=== PATIENT | female | born 1985 | race Hispanic/Latino ===

== ENCOUNTER 2020-09-09 12:13 | Day surgery (SDC) | payer MEDICAID ==
[2020-09-09] MEDS ORDERED: Ondansetron PF 4 MG/2 ML Vial IVP PRN (13:04)
[2020-09-09] MEDS ORDERED: hydrALAZINE 20 MG/ML VIAL SLOW IVP PRN (13:04)
[2020-09-09 13:06] VITALS: BMI 40.8
[2020-09-09 13:46] LABS: #Eosinphils 0.1 10x3/uL (0.0-0.5); #Monocytes 0.8 10x3/uL (0.0-1.1); #Neutrophils 5.3 10x3/uL (1.5-8.4); %Basophils 0.5 % (0.0-2.0); %Eosinophils 1.7 % (0.0-6.0); %Lymphocytes 23.4 % (18.0-47.0); %Neutrophils 63.7 % (40.0-75.0); Hemoglobin 13.7 g/dL (12.0-15.5); Mean Corpuscular HGB CONC 32.9 g/dL (32.0-36.0); Mean Corpuscular Hemoglobin 29.6 pg (27.0-33.0); Mean Corpuscular Volume 90.1 fl (81.6-98.3); Mean Platelet Volume 10.7 fl (7.4-10.4); Platelet Count 260 10x3/uL (150-450); RBC Distribution Width 13.1 % (11.5-14.5); Red Blood Cell (RBC) Count 4.63 10x6/uL (3.90-5.03); White Blood Cell (WBC) Count 8.4 10x3/uL (3.5-10.5)
[2020-09-09] MEDS: Betamet Acet/Betamet Na Ph 30 MG/5 ML VIAL IM SCH (14:11)
[2020-09-09] MEDS ORDERED: Lactated Ringer's 1,000 ML IV SCH (22:30)
[2020-09-10] MEDS ORDERED: Aspirin 81 mg Enteric Coated Tablet PO SCH (09:00)
[2020-09-10] MEDS: Betamet Acet/Betamet Na Ph 30 MG/5 ML VIAL IM SCH (14:23)
[2020-09-10 14:49] LABS: SARS-CoV-2 PCR by NAA Not Detected (NotDetected)
== END 2020-09-10 16:00 | disposition home or self-care (01) ==
LOC: CSHLD/OP 12:13
PROVIDERS: ATTEND Obstetrics & Gynecology
DX: O36.5930 Maternal care for other known or suspected poor fetal growth, third trimester, not applicable or unspecified (principal); O41.03X0 Oligohydramnios, third trimester, not applicable or unspecified; O99.213 Obesity complicating pregnancy, third trimester; E66.9 Obesity, unspecified; O09.523 Supervision of elderly multigravida, third trimester; O34.219 Maternal care for unspecified type scar from previous cesarean delivery; Z3A.32 32 weeks gestation of pregnancy; Z79.82 Long term (current) use of aspirin; Z20.822 Contact with and (suspected) exposure to COVID-19
CPT/HCPCS: 85025; 86850; 86900; 86901; 87635; J0702; U0003; U0005

== ENCOUNTER 2020-09-14 13:46 | Inpatient (IN) | payer MEDICAID, SELFPAY ==
[2020-09-14 14:21] VITALS: BMI 38.9
[2020-09-14] MEDS ORDERED: hydrALAZINE 20 MG/ML VIAL SLOW IVP PRN (14:50)
[2020-09-14] MEDS ORDERED: Ondansetron PF 4 MG/2 ML Vial IVP PRN (15:46)
[2020-09-14] MEDS ORDERED: Promethazine HCl 25 MG/ML VIAL IM PRN (15:46)
[2020-09-14 17:19] LABS: Hemoglobin 13.6 g/dL (12.0-15.5); Mean Corpuscular HGB CONC 33.2 g/dL (32.0-36.0); Mean Corpuscular Hemoglobin 29.8 pg (27.0-33.0); Mean Corpuscular Volume 89.9 fl (81.6-98.3); Mean Platelet Volume 10.5 fl (7.4-10.4); Platelet Count 220 10x3/uL (150-450); RBC Distribution Width 13.2 % (11.5-14.5); Red Blood Cell (RBC) Count 4.56 10x6/uL (3.90-5.03); White Blood Cell (WBC) Count 11.3 10x3/uL (3.5-10.5)
[2020-09-14 17:52] LABS: Hep B Surf Ag Non-Reactive S/CO (NonReactive); Syphilis Antibody Nonreactive (Nonreactive); Syphilis Antibody Index 0.02 S/CO (<1.00 Non-Reactive)
[2020-09-14 18:21] LABS: HBSAg Index 0.16 S/CO (0-0.99)
[2020-09-15] MEDS ORDERED: Famotidine/PF 20 mg/2ml Vial SLOW IVP PRN (03:42)
[2020-09-15] MEDS ORDERED: Bicitra 30 ML UDCUP PO PRN (03:42)
[2020-09-15] MEDS ORDERED: CEFAZOLIN 2 GM in Premix Bag 1 BAG IVPB SCH (04:00)
[2020-09-15 04:15] LABS: SARS-CoV-2 NAA Rapid Test Not Detected (NotDetected)
[2020-09-15] MEDS ORDERED: Morphine PF 10 MG/10 ML VIAL ONE (06:50)
[2020-09-15] MEDS ORDERED: Oxytocin 10 UNITS/ML VIAL ONE (06:51)
[2020-09-15] MEDS ORDERED: Dexamethasone 4 mg/ml Vial ONE (06:52)
[2020-09-15] MEDS ORDERED: Ondansetron PF 4 MG/2 ML Vial ONE (06:52)
[2020-09-15] MEDS ORDERED: Phenylephrine 10 MG/ML VIAL ONE (07:04)
[2020-09-15] MEDS ORDERED: Glycopyrrolate 0.2 MG/ML 5 ML SYRINGE ONE (07:46)
[2020-09-15] MEDS ORDERED: Midazolam HCl 2 mg/2 ml Vial ONE (08:05)
[2020-09-15] MEDS ORDERED: Fentanyl 100 MCG/2 ML VIAL ONE (08:17)
[2020-09-15 08:38] LABS: RapidComm Collect By CBN; pH (Cord, venous) 7.309 (7.250-7.350)
[2020-09-15 08:39] LABS: RapidComm Collect By CBN
[2020-09-15] MEDS ORDERED: diphenhydrAMINE 50 MG/ML VIAL IVP PRN (09:36)
[2020-09-15] MEDS ORDERED: Naloxone HCl 0.4 mg/ml Vial IVP PRN ×2 (09:36)
[2020-09-15] MEDS ORDERED: HYDROmorphone 2 MG/ML VIAL SLOW IVP PRN (09:36)
[2020-09-15] MEDS ORDERED: Promethazine HCl 25 MG/ML VIAL IM PRN ×2 (09:36→14:14)
[2020-09-15] MEDS ORDERED: Ondansetron PF 4 MG/2 ML Vial IVP PRN ×2 (09:36→14:14)
[2020-09-15] MEDS ORDERED: Meperidine HCl/PF 25 MG/ML VIAL SLOW IVP PRN (09:36)
[2020-09-15] MEDS ORDERED: Promethazine HCl 25 MG SUPP PR PRN (09:36)
[2020-09-15] MEDS ORDERED: Naloxone HCl 0.4 mg/ml Vial IV PRN (09:36)
[2020-09-15] MEDS ORDERED: L&D-Morphine 4 MG/ML VIAL SLOW IVP PRN (09:36)
[2020-09-15] MEDS ORDERED: Ondansetron HCl/PF 4 MG/2 ML Vial IVP PRN (09:36)
[2020-09-15] MEDS ORDERED: Ketorolac Tromethamine 30 MG/ML VIAL ONE (09:39)
[2020-09-15] MEDS ORDERED: Ketorolac Tromethamine 30 MG/ML VIAL IVP SCH (09:45)
[2020-09-15] MEDS ORDERED: Communication Order-Pharmacy FS SCH (09:45)
[2020-09-15] MEDS ORDERED: Hydrocerin (Eucerin) Cream 120 gm Jar TOP PRN (10:05)
[2020-09-15] MEDS ORDERED: NS w/ Oxytocin 30 units 500 ML ONE (10:10)
[2020-09-15 13:48] LABS: ALT (SGPT) 20 U/L (8-55); AST (SGOT) 27 U/L (5-34); Albumin 2.8 g/dL (3.5-5.0); Alkaline Phosphatase 120 U/L (40-110); Anion Gap 11 mmol/L (10-20); BUN (Urea Nitrogen) 10 mg/dL (7.0-18.7); Bilirubin, Total 0.2 mg/dL (0.2-1.2); Calc. Creatinine Clearance 203 mL/min (70-130); Calcium 8.1 mg/dL (7.8-10.44); Carbon Dioxide 22 mmol/L (22-29); Chloride 109 mmol/L (98-107); Globulin 2.8 g/dL (2.4-3.5); Glucose 99 mg/dL (70-105); Potassium 5.2 mmol/L (3.5-5.1); Protein, Total 5.6 g/dL (6.0-8.3); Sodium 137 mmol/L (136-145)
[2020-09-15] MEDS ORDERED: HYDROcodone/Acetaminophen 5/325 mg Tablet PO PRN (14:14)
[2020-09-15] MEDS ORDERED: Simethicone Chewable 80 MG TAB PO PRN (14:14)
[2020-09-15] MEDS ORDERED: Lanolin Ointment 7 GM TUBE TOP PRN (14:14)
[2020-09-15] MEDS ORDERED: Adacel (T-DAP) 0.5 ML SYRINGE IM ONE (14:14)
[2020-09-15] MEDS ORDERED: hydrALAZINE 20 MG/ML VIAL SLOW IVP PRN (14:14)
[2020-09-15] MEDS ORDERED: diphenhydrAMINE 25 MG CAP PO PRN (14:14)
[2020-09-15] MEDS: Ketorolac Tromethamine 30 MG/ML VIAL IVP PRN ×2 (15:46→23:54)
[2020-09-16 06:13] LABS: Hemoglobin 11.8 g/dL (12.0-15.5); Mean Corpuscular HGB CONC 32.4 g/dL (32.0-36.0); Mean Corpuscular Hemoglobin 29.5 pg (27.0-33.0); Mean Platelet Volume 10.9 fl (7.4-10.4); Platelet Count 203 10x3/uL (150-450); RBC Distribution Width 13.6 % (11.5-14.5)
[2020-09-16 06:31] LABS: ALT (SGPT) 15 U/L (8-55); AST (SGOT) 21 U/L (5-34); Albumin 2.8 g/dL (3.5-5.0); Alkaline Phosphatase 104 U/L (40-110); Anion Gap 10 mmol/L (10-20); BUN (Urea Nitrogen) 11 mg/dL (7.0-18.7); Bilirubin, Total 0.3 mg/dL (0.2-1.2); Calc. Creatinine Clearance 193 mL/min (70-130); Calcium 8.7 mg/dL (7.8-10.44); Carbon Dioxide 27 mmol/L (22-29); Chloride 104 mmol/L (98-107); Globulin 2.5 g/dL (2.4-3.5); Glucose 112 mg/dL (70-105); Potassium 5.7 mmol/L (3.5-5.1); Protein, Total 5.3 g/dL (6.0-8.3); Sodium 135 mmol/L (136-145)
[2020-09-16] MEDS: Docusate Calcium (SURFAK) 240 MG CAP PO SCH ×3 (06:52→20:01)
[2020-09-16] MEDS: Ferrous Sulfate 325 MG TAB PO SCH ×2 (06:53→07:20)
[2020-09-16] MEDS ORDERED: Furosemide 20 MG/2 ML VIAL SLOW IVP SCH (07:00)
[2020-09-16] MEDS: Prenatal Vitamin 1 TAB PO SCH (07:39)
[2020-09-16] MEDS ORDERED: Ibuprofen 800 MG TAB PO SCH (14:00)
[2020-09-16 14:18] LABS: Anion Gap 8 mmol/L (10-20); BUN (Urea Nitrogen) 11 mg/dL (7.0-18.7); Calc. Creatinine Clearance 185 mL/min (70-130); Calcium 9.1 mg/dL (7.8-10.44); Carbon Dioxide 30 mmol/L (22-29); Chloride 104 mmol/L (98-107); Glucose 108 mg/dL (70-105); Potassium 5.3 mmol/L (3.5-5.1); Sodium 137 mmol/L (136-145)
[2020-09-16] MEDS: HYDROcodone/Acetaminophen 5/325 mg Tablet PO PRN (20:00)
[2020-09-16] MEDS: Ibuprofen 600 MG TAB PO SCH (20:12)
[2020-09-17] MEDS: Ibuprofen 600 MG TAB PO SCH (05:28)
[2020-09-17] MEDS: Docusate Calcium (SURFAK) 240 MG CAP PO SCH (07:37)
[2020-09-17] MEDS: Prenatal Vitamin 1 TAB PO SCH (07:37)
[2020-09-17] MEDS: HYDROcodone/Acetaminophen 5/325 mg Tablet PO PRN (07:37)
[2020-09-17 07:48] LABS: ALT (SGPT) 15 U/L (8-55); AST (SGOT) 24 U/L (5-34); Albumin 2.8 g/dL (3.5-5.0); Alkaline Phosphatase 87 U/L (40-110); Anion Gap 10 mmol/L (10-20); BUN (Urea Nitrogen) 12 mg/dL (7.0-18.7); Bilirubin, Total 0.2 mg/dL (0.2-1.2); Calc. Creatinine Clearance 177 mL/min (70-130); Calcium 8.6 mg/dL (7.8-10.44); Carbon Dioxide 29 mmol/L (22-29); Chloride 105 mmol/L (98-107); Globulin 2.5 g/dL (2.4-3.5); Glucose 88 mg/dL (70-105); Protein, Total 5.3 g/dL (6.0-8.3); Sodium 139 mmol/L (136-145)
[2020-09-17 08:08] VITALS: BP 126/64; TEMP 98.6
== END 2020-09-17 12:39 | disposition home or self-care (01) | DRG 787 ==
LOC: CSHLD/OP 13:46 → CSHLD 09-15 03:38 → CSHPED 09-15 12:40
PROVIDERS: ADMIT Obstetrics & Gynecology; ATTEND Obstetrics & Gynecology
PROC: 10D00Z1 Extraction of Products of Conception, Low, Open Approach (ICD-10-PCS; principal; 2020-09-15)
DX: O36.5930 Maternal care for other known or suspected poor fetal growth, third trimester, not applicable or unspecified (principal); O60.10X0 Preterm labor with preterm delivery, unspecified trimester, not applicable or unspecified; O41.03X0 Oligohydramnios, third trimester, not applicable or unspecified; D62 Acute posthemorrhagic anemia; Z20.822 Contact with and (suspected) exposure to COVID-19; O34.211 Maternal care for low transverse scar from previous cesarean delivery; O76 Abnormality in fetal heart rate and rhythm complicating labor and delivery; O99.214 Obesity complicating childbirth; O99.02 Anemia complicating childbirth; E87.6 Hypokalemia; E66.01 Morbid (severe) obesity due to excess calories; Z3A.33 33 weeks gestation of pregnancy; Z37.0 Single live birth
CPT/HCPCS: 36415; 51702; 76819; 80053; 82805; 85027; 86780; 86850; 86900; 86901; 87340; 88307; 99285; J0360; J0690; J1100; J1200; J1885; J1940; J2250; J2274; J2370; J2405; J2590; J3010; Q0163; U0002; U0005

== ENCOUNTER 2024-04-10 11:33 | Day surgery (SDC) | payer SELFPAY ==
[2024-04-10] MEDS ORDERED: hydrALAZINE 20 MG/ML VIAL SLOW IVP PRN (13:21)
[2024-04-10] MEDS ORDERED: Labetalol HCl 100 MG TAB PO SCH (14:00)
[2024-04-10] MEDS ORDERED: Acetaminophen 500 MG TAB PO SCH (14:00)
[2024-04-10 14:23] LABS: #Basophils 0.06 10x3/uL (0.0-0.2); #Eosinophils 0.67 10x3/uL (0.0-0.5); #Monocytes 0.84 10x3/uL (0.0-1.1); #Neutrophils 4.82 10x3/uL (1.5-8.4); %Basophils 0.7 % (0.0-2.0); %Eosinophils 7.6 % (0.0-6.0); %Lymphocytes 26.9 % (18.0-47.0); %Monocytes 9.5 % (0.0-10.0); %Neutrophils 54.7 % (40.0-75.0); Hematocrit 40.3 % (34.9-44.5); Hemoglobin 13.3 g/dL (12.0-15.5); Mean Corpuscular Hemoglobin 29.4 pg (27.0-33.0); Mean Corpuscular Volume 89.2 fL (81.6-98.3); Mean Platelet Volume 10.6 fL (7.4-10.4); Platelet Count 234 10x3/uL (150-450); RBC Distribution Width 13.3 % (11.5-14.5); Red Blood Cell (RBC) Count 4.52 10x6/uL (3.90-5.03); White Blood Cell (WBC) Count 8.8 10x3/uL (3.5-10.5)
[2024-04-10 14:56] LABS: ALT (SGPT) 10 U/L (8-55); AST (SGOT) 29 U/L (5-34); Albumin 2.9 g/dL (3.5-5.0); Alkaline Phosphatase 115 U/L (40-110); Anion Gap 12 mmol/L (10-20); BUN (Urea Nitrogen) 10 mg/dL (7.0-18.7); Bilirubin, Total 0.2 mg/dL (0.2-1.2); Calc. Creatinine Clearance 0 mL/min (70-130); Calcium 9.3 mg/dL (7.8-10.44); Carbon Dioxide 19 mmol/L (22-29); Chloride 109 mmol/L (98-107); Estimated GFR 111; Globulin 3.5 g/dL (2.4-3.5); Glucose 83 mg/dL (70-105); Potassium 4.4 mmol/L (3.5-5.1); Protein, Total 6.4 g/dL (6.0-8.3); Sodium 136 mmol/L (136-145)
[2024-04-10 15:42] LABS: Creatinine, Urine 132.46 mg/dL (47-110)
== END 2024-04-10 16:45 | disposition home or self-care (01) ==
LOC: CSHLD/OP 11:33
PROVIDERS: ATTEND Family Medicine
DX: O16.3 Unspecified maternal hypertension, third trimester (principal); O09.523 Supervision of elderly multigravida, third trimester; O99.213 Obesity complicating pregnancy, third trimester; Z3A.33 33 weeks gestation of pregnancy; Z87.59 Personal history of other complications of pregnancy, childbirth and the puerperium; Z87.51 Personal history of pre-term labor; Z79.82 Long term (current) use of aspirin; Z79.899 Other long term (current) drug therapy
CPT/HCPCS: 36415; 80053; 82570; 84156; 85025; 99281

== ENCOUNTER 2024-04-26 11:15 | Inpatient (IN) | payer MEDICAID, OTHER ==
[~2024-04-26 11:15] MED LIST: Oxytocin 10 UNITS/ML VIAL ONE; PHENYLEPHRINE-NS 100 MCG/ML 10 ML SYRINGE ONE; PROPOFOL 200 MG/20 ML VIAL ONE; SUCCINYLCHOLINE/SOD CL,ISO/PF 200 MG/10 ML SYRINGE FS ONE
[2024-04-26] MEDS ORDERED: Tranexamic Acid 1,000 MG/10 ML VIAL IVP PRN (12:05)
[2024-04-26] MEDS ORDERED: Bicitra 30 ML UDCUP PO PRN (12:05)
[2024-04-26] MEDS ORDERED: hydrALAZINE 20 MG/ML VIAL SLOW IVP PRN (12:05)
[2024-04-26] MEDS ORDERED: Famotidine/PF 20 mg/2ml Vial SLOW IVP PRN (12:05)
[2024-04-26] MEDS ORDERED: Misoprostol 200 MCG TAB PR PRN (12:05)
[2024-04-26] MEDS ORDERED: Promethazine HCl 25 MG/ML VIAL IM PRN ×2 (12:05→14:06)
[2024-04-26] MEDS ORDERED: Ondansetron PF 4 MG/2 ML Vial IVP PRN ×3 (12:05→14:06)
[2024-04-26] MEDS ORDERED: Oxytocin 30 units/NS 500 ML 500 ML IV SCH (12:15)
[2024-04-26] MEDS ORDERED: CEFAZOLIN 2 GM in Sodium Chloride 0.9% 100 ML IVPB SCH (12:15)
[2024-04-26 12:28] VITALS: BMI 42.2
[2024-04-26 12:46] LABS: Hematocrit 38.6 % (34.9-44.5); Mean Corpuscular HGB CONC 33.7 g/dL (32.0-36.0); Mean Corpuscular Hemoglobin 30.2 pg (27.0-33.0); Mean Corpuscular Volume 89.6 fL (81.6-98.3); Mean Platelet Volume 10.7 fL (7.4-10.4); Platelet Count 197 10x3/uL (150-450); RBC Distribution Width 13.5 % (11.5-14.5); Red Blood Cell (RBC) Count 4.31 10x6/uL (3.90-5.03); White Blood Cell (WBC) Count 8.6 10x3/uL (3.5-10.5)
[2024-04-26 13:13] LABS: HBsAg Index 0.18 S/CO (0-0.99); HIV (1/2) Antibody/Antigen Non-Reactive (NonReactive); HIV 1/2 INDEX 0.07 S/CO (<1.00); Hep B Surf Ag - L&D Non-Reactive S/CO (NonReactive); Syphilis Antibody Nonreactive (Nonreactive); Syphilis Antibody Index 0.03 S/CO (<1.00 Non-Reactive)
[2024-04-26 13:24] LABS: Analyzer IN Cardio CS NICU; RapidComm Collect By OR NURSE
[2024-04-26] MEDS ORDERED: Bisacodyl 10 MG SUPP PR PRN (14:05)
[2024-04-26] MEDS ORDERED: diphenhydrAMINE 25 MG CAP PO PRN (14:05)
[2024-04-26] MEDS ORDERED: Lanolin Ointment 7 GM TUBE TOP PRN (14:05)
[2024-04-26] MEDS ORDERED: diphenhydrAMINE 50 MG/ML VIAL IVP PRN (14:06)
[2024-04-26] MEDS ORDERED: Meperidine HCl/PF 25 MG (1 mL) VIAL SLOW IVP PRN (14:06)
[2024-04-26] MEDS ORDERED: Naloxone HCl 0.4 mg/ml Vial IV PRN (14:06)
[2024-04-26] MEDS ORDERED: diphenhydrAMINE 50 MG/ML VIAL IM PRN (14:06)
[2024-04-26] MEDS ORDERED: Morphine 4 MG/ML VIAL SLOW IVP PRN (14:06)
[2024-04-26] MEDS ORDERED: fentaNYL 50 mcg/mL 1 mL Vial SLOW IVP PRN (14:06)
[2024-04-26] MEDS ORDERED: FENTANYL 500 MCG/10 ML VIAL 2,000 MCG in Sodium Chloride 0.9% 60 ML IV PRN (14:06)
[2024-04-26] MEDS ORDERED: Ketorolac Tromethamine 30 MG (1 mL) VIAL IVP SCH (14:15)
[2024-04-26] MEDS ORDERED: Communication Order-Pharmacy FS PRN (14:15)
[2024-04-26] MEDS: Dexamethasone 10 MG/ML VIAL ONE (14:39)
[2024-04-26] MEDS: Carboprost 250 MCG/ML AMP ONE (14:39)
[2024-04-26] MEDS: Tranexamic Acid 1,000 MG/10 ML VIAL ONE (14:39)
[2024-04-26] MEDS: fentaNYL 50 mcg/mL 1 mL Vial ONE ×2 (14:39→14:40)
[2024-04-26] MEDS: metroNIDAZOLE 500 MG in Premix 1 BAG IVPB SCH (14:40)
[2024-04-26] MEDS: Ondansetron PF 4 MG/2 ML Vial ONE (14:40)
[2024-04-26] MEDS: Ketorolac Tromethamine 30 MG (1 mL) VIAL ONE (14:40)
[2024-04-26] MEDS: Boostrix 0.5 ML (Tdap) VIAL (>/=7 yrs of age) IM ONE (14:40)
[2024-04-26] MEDS: FENTANYL 1,000 MCG/20 ML VIAL 1,000 MCG in Sodium Chloride 0.9% 30 ML IV PRN (14:47)
[2024-04-26] MEDS: Diphenoxylate HCl/Atropine Tablet PO PRN (16:12)
[2024-04-26 16:20] LABS: Amphetamine Not Detected (NotDetected); Barbiturates Screen Not Detected (NotDetected); Benzodiazepine Screen Not Detected (NotDetected); Cocaine Metabolite Screen Not Detected (NotDetected); Methadone Not Detected (NotDetected); Methamphetamine Not Detected (NotDetected); Opiate Screen Not Detected (NotDetected); Oxycodone Screen Not Detected (NotDetected); Phencyclidine (PCP) Not Detected (NotDetected); THC/Cannabinoid Screen Not Detected (NotDetected); Tricyclic Screen Not Detected (NotDetected)
[2024-04-26 16:39] LABS: Creatinine, Urine 82.57 mg/dL (47-110)
[2024-04-26] MEDS ORDERED: Calcium Gluc 4.6 MEQ/10 ML (100 MG/ML) SLOW IVP PRN (16:44)
[2024-04-26] MEDS: hydrALAZINE 20 MG/ML VIAL SLOW IVP PRN (16:46)
[2024-04-26] MEDS: Magnesium Sulfate 20 gm/500 ml 20 GM/500 ML BAG ONE (16:50)
[2024-04-26 17:10] LABS: Critical Notified Time 1322; Critical Notified Whom: Y; pH (Cord, venous) 7.146 (7.250-7.350)
[2024-04-26 17:11] LABS: Draw Time: 1320; RapidComm Collect By OR NURSE
[2024-04-26] MEDS: Ferrous Sulfate 325 MG TAB PO SCH (20:47)
[2024-04-26] MEDS: Ibuprofen 800 MG TAB PO SCH (20:47)
[2024-04-26] MEDS: Docusate 100 MG CAP PO SCH (20:47)
[2024-04-26] MEDS: Labetalol HCl 100 MG TAB PO SCH (21:03)
[2024-04-26] MEDS: Magnesium Sulfate 20 gm/500 ml 20 GM/500 ML BAG IVPB SCH (21:29)
[2024-04-26 23:24] LABS: HBSAB Concentration Less than 8.00 mIU/mL; Hep B Core Total Ab NONREACTIVE (NonReactive); Hep B Core Total Index 0.07 S/CO (0-0.79); Hep B Surf AB NONREACTIVE (NonReactive)
[2024-04-26 23:57] LABS: Hep B Surf Ag NONREACTIVE S/CO (NonReactive)
[2024-04-27 05:53] LABS: Hematocrit 38.4 % (34.9-44.5); Hemoglobin 12.6 g/dL (12.0-15.5); Mean Corpuscular HGB CONC 32.8 g/dL (32.0-36.0); Mean Corpuscular Hemoglobin 29.7 pg (27.0-33.0); Mean Corpuscular Volume 90.6 fL (81.6-98.3); Mean Platelet Volume 10.5 fL (7.4-10.4); Platelet Count 226 10x3/uL (150-450); RBC Distribution Width 13.6 % (11.5-14.5); Red Blood Cell (RBC) Count 4.24 10x6/uL (3.90-5.03); White Blood Cell (WBC) Count 14.6 10x3/uL (3.5-10.5)
[2024-04-27] MEDS: Enoxaparin 40 MG (0.4 mL) SYRINGE SC SCH ×2 (10:21→21:54)
[2024-04-27] MEDS ORDERED: Enoxaparin 40 MG (0.4 mL) SYRINGE SC SCH (13:00)
[2024-04-27] MEDS: HYDROcodone/Acetaminophen 5/325 mg Tablet PO PRN (16:09)
[2024-04-27] MEDS: Ibuprofen 800 MG TAB PO SCH (23:00)
[2024-04-28] MEDS: Simethicone Chewable 80 MG TAB PO PRN (05:30)
[2024-04-28] MEDS: HYDROcodone/Acetaminophen 5/325 mg Tablet PO PRN (06:40)
[2024-04-28] MEDS: diphenhydrAMINE 25 MG CAP PO PRN (08:21)
[2024-04-29 16:16] VITALS: BP 120/58; TEMP 97.8
== END 2024-04-29 17:30 | disposition home or self-care (01) | DRG 787 ==
LOC: CSHLD/OP 11:15 → CSHLD 13:09 → CSHPP 04-27 21:25
PROVIDERS: ADMIT Family Medicine; ATTEND Family Medicine
PROC: 10D00Z1 Extraction of Products of Conception, Low, Open Approach (ICD-10-PCS; principal; 2024-04-26)
DX: O76 Abnormality in fetal heart rate and rhythm complicating labor and delivery (principal); O10.92 Unspecified pre-existing hypertension complicating childbirth; O34.211 Maternal care for low transverse scar from previous cesarean delivery; Z79.899 Other long term (current) drug therapy; Z3A.35 35 weeks gestation of pregnancy; Z79.82 Long term (current) use of aspirin; Z37.0 Single live birth; O11.5 Pre-existing hypertension with pre-eclampsia, complicating the puerperium; O77.0 Labor and delivery complicated by meconium in amniotic fluid
CPT/HCPCS: 36415; 51702; 80306; 82570; 82805; 84156; 85027; 86704; 86706; 86780; 86850; 86900; 86901; 87340; 87389; 88307; 99285; J0360; J1100; J1650; J1885; J2405; J2590; J2704; J3010; J3475; J3490